=== PATIENT | male | born 1960 | race Caucasian/White ===

== ENCOUNTER 2016-10-16 13:52 | Emergency (ER) | payer MEDICARE | END 2016-10-16 16:23 | disposition home or self-care (01) | LOC: ER 15:05 | DX: G51.0 Bell's palsy (principal); E11.65 Type 2 diabetes mellitus with hyperglycemia; Z79.899 Other long term (current) drug therapy; F17.210 Nicotine dependence, cigarettes, uncomplicated | CPT/HCPCS: 36415; 70450; 80053; 81003; 82947; 85025 ==